=== PATIENT | male | born 1975 | race Two or more races ===

== ENCOUNTER → 2018-11-24 | Outpatient (CLI) | payer OTHER ==
--- NOTE | 2018-11-24 11:47 | RAD ---
MRI Lumbar Spine without contrast History: Worsening chronic back pain Technique: Multiplanar, multi sequential noncontrast MR imaging was performed of the lumbar spine. Comparison: None Findings: Lumbar vertebral body stature is maintained. There is grade 1 anterior spondylolisthesis at L4-L5, bilateral L4 spondylolysis. There is advanced degenerative disc disease at L4-5, prominent L4-5 endplate edema present. Conus terminates at L4-1-2. L3-L4: There is mild buckling of the ligamentum flavum and facet degenerative change. There is minimal disc osteophyte complex. L4-L5: There is partial uncovering of the posterior aspect of the disc due to spondylolisthesis with superimposed disc osteophyte complex/bulge. Spinal canal is adequate. There is mild facet degenerative change and buckling of the ligamentum flavum. There is severe neural foramina compromise bilaterally with impingement of the exiting L4 nerve roots bilaterally. L5-S1: Spinal canal and neural foramina are adequate. Impression: 1. There is grade 1 anterior spondylolisthesis at L4-5 due to bilateral L4 spondylolysis. There is advanced degenerative disc disease at L4-5, prominent endplate edema at this level likely reactive/degenerative in etiology. There is severe bilateral L4-5 neural foramina compromise with impingement of the exiting L4 nerve roots bilaterally. Electronically signed by: Sae Velasquez MD (11/24/2018 11:44 AM) [id number]
== END | disposition home or self-care (01) ==
LOC: MRI 10:05
PROVIDERS: ATTEND Family Medicine
DX: M43.16 Spondylolisthesis, lumbar region (principal); M51.36 Other intervertebral disc degeneration, lumbar region; R60.0 Localized edema; M25.78 Osteophyte, vertebrae
CPT/HCPCS: 72148

== ENCOUNTER 2019-09-14 13:40 | Emergency (ER) | payer SELFPAY ==
[~2019-09-14] VITALS: Ht 177.8 cm; Wt 97.0 kg
[2019-09-14 13:52] VITALS: BP 137/82
[2019-09-14] MEDS ORDERED: DICL50TA2 PO (14:38)
[2019-09-14] MEDS ORDERED: METH4TAB2 PO (14:38)
[2019-09-14] MEDS ORDERED: CYCL10TA2 PO (14:38)
--- NOTE | 2019-09-14 14:39 | PHYS DOC ---
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 Patient denies any injury. He describes the pain as a shooting pain. 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 Denies any loss of bowel/bladder function. Denies any numbness or tingling to bilateral lower extremities. Daughter Interpreted for Serbian Review of Systems Review of Systems Constitutional: Denies fever or chills [] GI: Denies abdominal pain, nausea, vomiting, bloody stools or diarrhea [] : Denies dysuria or hematuria [] Musculoskeletal: Denies back pain or joint pain [] Integument: Denies rash or skin lesions [] Neurologic: Denies headache, focal weakness or sensory changes [] All other systems were reviewed and found to be within normal limits, except as documented in this note. Allergies Allergies Allergies Coded Allergies Type Severity Reaction Last Updated Verified No Known Drug Allergies 08/08/13 No Physical Exam Physical Exam Constitutional: Well developed, well nourished, no acute distress, non-toxic appearance. [] Abdomen: Bowel sounds normal, soft, no tenderness, no masses, no pulsatile masses. [] Skin: Warm, dry, no erythema, no rash. [] Back: No tenderness, no CVA tenderness. [] Extremities: No tenderness, no cyanosis, no clubbing, ROM intact, no edema. [] Neurologic: Alert and oriented X 3, normal motor function, normal sensory function, no focal deficits noted. [] Psychologic: Affect normal, judgement normal, mood normal. [] Current Patient Data Vital Signs Vital Signs Date Time Temp Pulse Resp B/P (MAP) Pulse Ox O2 Delivery O2 Flow Rate FiO2 09/14/19 13:52 98.2 69 16 137/82 (100) 95 98.2 EKG EKG [] Radiology/Procedures Radiology/Procedures [] Course & Med Decision Making Course & Med Decision Making Pertinent Labs and Imaging studies reviewed. (See chart for details) This is a 43-year-old male patient presenting to the ED that appears to be sciatic pain for 4 months, no known injury, no cauda equina syndrome symptoms. Provided patient resources for follow-up. Provided return precautions. Discharged in stable condition. Dragon Disclaimer Nehemiah Disclaimer This electronic medical record was generated, in whole or in part, using a voice recognition dictation system. Departure Departure Impression: Primary Impression: Sciatica, right side Disposition: HOME, SELF-CARE Condition: STABLE Referrals: NO PCP (PCP) follow up with a doctor from the list provided in 1-2 weeks Patient Instructions: Sciatica, [id number] Additional Instructions: You were evaluated in the emergency room for sciatica. Please contact one of the doctors from the list provided and establish care for long-term follow-up. Scripts Diclofenac Potassium (DICLOFENAC POTASSIUM) 50 Mg Tablet 1 TAB PO BID, #30 TAB 0 Refills Prov: OLIVERIO FIERRO APRN 09/14/19 Cyclobenzaprine Hcl (CYCLOBENZAPRINE HCL) 10 Mg Tablet 1 TAB PO TID, #30 TAB Prov: OLIVERIO FIERRO SCENIC DESIGNER 09/14/19 Methylprednisolone (MEDROL) 4 Mg Tab.ds.pk 1 PKG PO UD, #1 PKG Prov: OLIVERIO FIERRO APRN 09/14/19 OLIVERIO FIERRO APRN Sep 14, 2019 14:39
== END 2019-09-14 14:45 | disposition home or self-care (01) ==
LOC: ER 13:40
DX: M54.41 Lumbago with sciatica, right side (principal); K76.1 Chronic passive congestion of liver; Z98.890 Other specified postprocedural states
CPT/HCPCS: 99283